=== PATIENT | female | born 1985 | race Hispanic/Latino ===

== ENCOUNTER 2024-01-22 10:58 | Day surgery (SDC) | payer BC ==
[2024-01-20 10:05] LABS: BASOPHILS # (AUTO) 0.01 K/uL (0.00-0.20); BASOPHILS % (AUTO) 0.1 % (0.0-5.0); EOSINOPHILS # (AUTO) 0.07 K/uL (0.00-0.70); HEMATOCRIT 37.9 % (36-48); IMMATURE GRANULOCYTE ABSOLUTE 0.02 K/uL (0-1); LYMPHOCYTES # (AUTO) 1.8 K/uL (1.0-4.8); LYMPHOCYTES % (AUTO) 26.2 % (21.0-51.0); MEAN CORPUSCULAR HEMOGLOBIN 27.4 pg (27.0-33.0); MEAN CORPUSCULAR HGB CONC 32.2 g/dL (32.0-36.0); MEAN CORPUSCULAR VOLUME 85.2 fL (79-99); MONOCYTES # (AUTO) 0.2 K/uL (0.1-1.0); NEUTROPHILS # (AUTO) 4.8 K/uL (1.8-7.7); NEUTROPHILS % (AUTO) 69.4 % (40.0-77.0); PLATELET COUNT (AUTO) 343 K/uL (130-400); RED BLOOD CELL COUNT(AUTO) 4.45 MIL/uL (4.00-5.50); RED CELL DISTRIBUTION WIDTH 13.2 % (11.0-15.5)
[2024-01-20 10:10] LABS: CREATININE 0.8 mg/dL (0.5-1.0)
[2024-01-20 10:13] VITALS: BP 139/74; PULSE 80; RESP 18; TEMP 97.9
--- NOTE | 2024-01-20 10:34 | EKG ---
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
[2024-01-22] VITALS (18 sets, daily range): BP systolic 118–153; BP diastolic 65–97; PULSE 62–85; RESP 14–18; TEMP 97.5–98.1
[~2024-01-22] VITALS: Ht 165.1 cm; Wt 112.6 kg
[2024-01-22] MEDS: IOHEXOL-350 50ML VIAL IV ONE
[2024-01-22] MEDS: BUPIvacaine/PF 0.5% 30ML VIAL ONE
[2024-01-22] MEDS: LACTATED RINGERS 1000ML 1,000 ML IV ONE (11:37)
[2024-01-22] MEDS: ceFAZolin SODIUM 2 GM VIAL ONE (11:38)
[2024-01-22] MEDS ORDERED: proPOFol 10 MG/ML 20ML VIAL IV ONE (12:14)
[2024-01-22] MEDS ORDERED: FENTanyl CITRate PF 50 MCG/1 ML 2ML VIAL ONE ×2 (12:14→14:15)
[2024-01-22] MEDS ORDERED: MIDAZOLAM HCL 1 MG/ML 2ML VIAL ONE (12:14)
[2024-01-22] MEDS ORDERED: rocuRONium bROMide 10MG/1ML 5ML VL ONE (12:14)
[2024-01-22] MEDS ORDERED: LIDOCAINE PF 100MG/5ML (2%) SYRINGE 5ML ONE (12:14)
[2024-01-22] MEDS ORDERED: morPHINE 4 MG SYG ONE (12:17)
[2024-01-22] MEDS ORDERED: FAMOTIDINE 20MG VIAL IV ONE (12:17)
[2024-01-22] MEDS ORDERED: acetaMINOPHEN 100 ML ONE (12:17)
[2024-01-22] MEDS ORDERED: ondanSETRON 4MG INJ ONE (12:53)
[2024-01-22] MEDS ORDERED: dexaMETHasone SOD PHOSPHATE 10MG/ML 1ML VIAL ONE (12:53)
[2024-01-22] MEDS ORDERED: ALBUMIN (HUMAN) 5% 0 ML IV ONE (13:39)
[2024-01-22] MEDS ORDERED: GLYCOPYRROLATE 0.2 MG/ML 5 ML VIAL ONE (13:56)
[2024-01-22] MEDS ORDERED: NEOSTIGMINE METHYLSULFATE 1MG/ML IV ONE (13:56)
--- NOTE | 2024-01-22 14:38 | OP ---
Operative Note: DATE OF PROCEDURE: 01/22/24 SURGEON: IVETH LORENZO MD JUVENILE [employer]RECTIONS OFFICER: Anthony Lorenzo MD p.a. C ANESTHESIA: General and local ANESTHESIOLOGIST/CARBONATION EQUIPMENT OPERATOR: [facility] [place] anesthesia team PREOPERATIVE DIAGNOSIS: Symptomatic cholelithiasis POSTOPERATIVE DIAGNOSIS: As above SYNOPSIS: Cholecystectomy with the intraoperative cholangiogram performed without incident PROCEDURE: Laparoscopic cholecystectomy with intraoperative cholangiogram ESTIMATED BLOOD LOSS: Less than 50 cc INDICATIONS: As above DESCRIPTION OF PROCEDURE: After standard precautions and preparations were undertaken a Veress needle and optical trocar were used to enter the abdominal cavity. All other instruments were placed under direct vision. We began by retracting the fundus of the gallbladder cephalad and dissecting around the infundibulum. We are able to identify two individual structures entering the infundibulum one that appeared arterial and when that appeared ductal in nature. The structure in the foreground as we were viewing the anatomy which would typically be the cystic duct and a slightly smaller and almost vascular appearance. A single clip was applied and a ductotomy was made using scissors with pulsatile bleeding encountered. It was clear that the patient's anatomy was aberrant with the vessel in the foreground and the duct in the background. Control of the vessel was undertaken and clips were applied. The vessel was divided leaving two clips on the staying side. We left a single clip on the remaining structure which we were fairly certain was the duct another ductotomy was made using scissors with a flash of bile. The cholangiogram catheter was placed into the duct and a cholangiogram was taken. This demonstrated normal ductal anatomy. There was no sign of filling defects as the contrast flowed into the duodenum and up to the hepatic radicles. Ca theter was removed and two clips were placed on the staying side of the duct. The duct was divided. The gallbladder was removed from the gallbladder fossa using monopolar cautery to separate attachments. The specimen was placed in an Endo-Catch bag and removed from the abdominal cavity without incident. At the end of the case we examined the area of resection and found the clips all to be in place. There was no sign of any bile leakage or bleeding. The patient's right upper quadrant was irrigated until solution was clear. The patient tolerated the procedure well and was prepared for extubation and transferred to PACU in stable condition. IVETH LORENZO MD Jan 22, 2024 14:38
[2024-01-22] MEDS: MEPERIDINE-PF 25 MG/ML SYG ONE ×2 (14:53→15:01)
--- NOTE | 2024-01-22 16:11 | PN ---
GENERAL SURGERY PROGRESS NOTE Date/Time Patient Seen: [ 01/22/2024, 1600] Problem List: [ ] Interval History: [Postop day 0. Pain tolerable with p.r.n. medication. ] Physical Examination: GENERAL: [No acute distress.] Abdominal exam: Incisions clean, dry and intact, Dermabond in place Vital Signs (last 8hr) Date Time Temp Pulse Resp B/P (MAP) Pulse Ox O2 Delivery O2 Flow Rate FiO2 01/22/24 15:30 97.5 76 16 133/82 96 Room Air 21 01/22/24 15:25 97.5 72 16 140/84 96 Room Air 21 01/22/24 15:20 97.5 73 16 142/82 96 Room Air 21 01/22/24 15:15 97.5 80 16 142/84 96 Room Air 21 01/22/24 15:10 97.5 78 16 135/80 96 Room Air 21 01/22/24 15:05 97.5 82 16 138/76 96 Room Air 21 01/22/24 15:00 97.5 80 17 140/78 96 Room Air 21 01/22/24 14:55 97.5 84 18 139/84 96 Room Air 21 01/22/24 14:50 97.5 82 18 148/82 98 Nonrebreathing Mask 10.0 100 01/22/24 14:45 97.5 73 15 125/65 98 Nonrebreathing Mask 10.0 100 01/22/24 14:40 97.5 78 15 129/78 98 Nonrebreathing Mask 10.0 100 01/22/24 14:35 97.5 64 15 136/78 98 Nonrebreathing Mask 10.0 100 01/22/24 14:30 97.5 62 14 130/78 98 Nonrebreathing Mask 10.0 100 01/22/24 14:25 97.5 64 14 118/70 96 Nonrebreathing Mask 10.0 100 01/22/24 11:10 98.1 85 16 130/77 99 Room Air Laboratory: [ ] Diagnostics / Radiology: [Copy/Paste Echos/Imaging Report here] Impression and Plan: [Assessment/plan: Plan is for discharge home today with outpatient follow up in 5-10 days, sooner if needed. Discussed with the patient and family. They understand and agree. ] IVETH LORENZO MD Jan 22, 2024 16:11
--- NOTE | 2024-01-22 16:34 | HMCIMG ---
CHOLANGIO &/OR PANCRE INTRAOPE REASON: CHOLANGIOGRAM W/IOC'S. COMPARISON: None TECHNIQUE: Intraoperative cholangiogram study was performed by referring physician. FINDINGS: Please see procedure report by referring physician. IMPRESSION: Intraoperative films.
== END 2024-01-22 16:40 | disposition home or self-care (01) ==
LOC: DAH 10:58
PROVIDERS: ATTEND Surgery
DX: K80.00 Calculus of gallbladder with acute cholecystitis without obstruction (principal); J45.909 Unspecified asthma, uncomplicated; F41.9 Anxiety disorder, unspecified; E66.01 Morbid (severe) obesity due to excess calories; K76.0 Fatty (change of) liver, not elsewhere classified; E55.9 Vitamin D deficiency, unspecified; Z68.41 Body mass index [BMI] 40.0-44.9, adult; Z90.710 Acquired absence of both cervix and uterus; Z90.49 Acquired absence of other specified parts of digestive tract
CPT/HCPCS: 86900; 80048; 84703; 85025; 86850; 86901; 36415; 93005; 47563; 88304; 74300; A6260; J0665; A4663; J7030; J7120 ×2; A4215 ×2; C1758; J3490 ×3; J3010 ×2; J1100; J2003; J2250; J2704; J2405; J2270; J2710; J2175 ×2; Q9967; J0690; A4649 ×3; A4213; A4222; A4221; A4216; A4223 ×2; A4600; 43235; P9045